=== PATIENT | male | born 1955 | race African-American/Black ===

== ENCOUNTER → 2016-06-29 | Outpatient (CLI) | payer BC ==
--- NOTE | ~2016-06-29 | SLE ---
[facility] [address] [place] [address] POLYSOMNOGRAPHY STUDY Name: DALIA MATIAS Room #: REG [facility]#: [id number] Admission: 06/29/16 Attend Phys: Truong Wolfe MD Discharge: Date of : 51 Report #: [id number] THIS REPORT FOR: //name// CC: Truong Lorenzo MD DATE OF SERVICE: 06/30/2016 HISTORY: A 61-year-old, height 5 feet 11 inches, weight 273 pounds. He usually goes to bed after work, awakens in the morning to go to work. No definite snoring or daytime somnolence. Pinole sleepiness scale is a 5. History of hypertension, obesity, restless sleeper, trucking manager. COMMENTS: Split night sleep study. Baseline portion: Total sleep time 137 minutes. Respiratory summary: Central apnea 0, mixed apnea 0, obstructive apnea, 3, hypopnea 114. Apnea-hypopnea index of 51 events per sleep hour. Supine AHI 56.5, right lateral 16.7 events per sleep hour. Max heart rate 90. Periodic limb movement with arousal index of 18 events per sleep hour. 48% of the time in snoring. Low oxygen saturation 76%, spending 1% of recording time less than 90%. CPAP TITRATION: Titrated at 5, 6, 7, 8, 9, 10, 11, 12, 13 and 14 cm water pressure. At 12 cm water pressure, the patient was seen for 81 minutes of which 30 minutes was in REM sleep. Central apnea 1, obstructive apnea 1, hypopnea 9. Apnea-hypopnea index of 8 events per sleep hour. Low oxygen saturation 89%. At 13 and 14 cm water pressure, the patient was not seen in REM sleep. At 8 cm water pressure, the patient was seen for 28 minutes of which 18 minutes was in REM sleep. There were 3 hypopneas, apnea-hypopnea index of 6.4 events per sleep hour, low sat of 90%. IMPRESSION: 1. Obstructive sleep apnea/hypopnea, G47.33. 2. CPAP improves; however, does not totally correct apnea-hypopnea index, snoring and desaturation. 3. Periodic limb movement with arousal index of 18 events per sleep hour; however, during the titration portion, index went down to 4 events an hour, which may suggest that the events were related to obstruction. 4. No significant arrhythmia noted. [facility] [address] [place] [address] POLYSOMNOGRAPHY STUDY Name: DALIA MATIAS Room #: REG CLI [facility]#: [id number] Admission: 06/29/16 Attend Phys: Truong Wolfe MD Discharge: Date of : 51 Report #: [id number] SUGGESTIONS: 1. In addition to his specific therapy, the patient will be cautioned regarding driving or operating dangerous machinery unless fully alert. The patient will be cautioned regarding the use of respiratory depressants. 2. Oral appliance or appropriate surgery may be considered with appropriate followup. 3. The usual sleep apnea suggestions recommended. 4. An autotitrating CPAP between 7 and 16 cm water pressure is initially recommended. During our study, a [employer] [place] pillow was used with Respironics Deluxe chinstrap and heated humidity; however, a Respironics Lakshmi View full facemask may improve leakage. 5. If signs and symptoms are not improved with therapy, further evaluation is recommended. Please do not hesitate to contact me if I may be of further assistance. By: [id number] Truong Wolfe MD /nt
== END ==
LOC: SLEEPLAB 13:56
DX: G47.33 Obstructive sleep apnea (adult) (pediatric) (principal)